=== PATIENT | male | born 1965 | race Caucasian/White ===

== ENCOUNTER 2021-10-28 13:44 | Emergency (ER) | payer OTHER ==
[~2021-10-28] VITALS: Ht 185.4 cm; Wt 102.1 kg
[2021-10-28] MEDS ORDERED: WARFARIN SODIU7.5 MG PO (14:06)
[2021-10-28] MEDS ORDERED: NORVASC10 MG PO (14:07)
[2021-10-28] MEDS ORDERED: ATACAND32 MG PO (14:07)
[2021-10-28] MEDS ORDERED: METOPROLOL SUCC25 MG PO (14:08)
== END 2021-10-28 17:21 | disposition home or self-care (01) ==
LOC: ER 13:44
DX: R20.0 Anesthesia of skin (principal); R20.2 Paresthesia of skin; I10 Essential (primary) hypertension; Z88.2 Allergy status to sulfonamides